=== PATIENT | female | born 1955 | race Caucasian/White ===

== ENCOUNTER → 2017-05-04 | Outpatient (CLI) | payer BC ==
--- NOTE | 2017-05-04 15:05 | PCVCIMAG ---
EXAM: BILATERAL CAROTID DUPLEX INDICATION: Carotid bruit FINDINGS: Doppler Measurements (centimeters per second): RIGHT: Peak CCA-78, Peak ECA-93, Diastolic ICA-31, Peak ICA-104, ICA/CCA Ratio-1.3. LEFT: Peak CCA-55, Peak ECA-63, Diastolic ICA-46, Peak ICA-119, ICA/CCA Ratio-2.2. RIGHT CAROTID: The carotid bulb has mild plaque. The proximal internal carotid artery shows <40% stenosis. The common carotid artery shows no significant stenosis. The external carotid artery shows no significant stenosis. LEFT CAROTID: The carotid bulb has mild plaque. The proximal internal carotid artery shows 40-50% stenosis. The common carotid artery shows no significant stenosis. The external carotid artery shows no significant stenosis. Antegrade flow in both vertebral arteries. IMPRESSION: <40% stenosis of the right internal carotid artery with mild plaque. 40-50% stenosis of the left internal carotid artery with mild plaque. LOC:[place] [id number]
--- NOTE | 2017-05-04 15:09 | PCVCIMAG ---
EXAM: ULTRASOUND OF THE THYROID INDICATION: Thyroid nodules FINDINGS: The right thyroid lobe measures 5.5 x 2.8 x 2.2 cm. The left thyroid lobe measures 6.0 x 2.0 x 2.2 cm. Multiple less than 1 cm hypoechoic nodules throughout both thyroid lobes. The largest on the right measures 0.6 x 0.8 x 0.9 cm in the mid to lower pole. The largest on the left is 0.6 x 0.8 x 0.9 cm in the mid to lower pole. IMPRESSION: Multiple small nodules throughout both thyroid lobes with mild thyroid enlargement consistent with multinodular thyroid goiter. LOC:[id number]
== END | disposition home or self-care (01) ==
LOC: PCVCIMAG 12:07
PROVIDERS: ATTEND Internal Medicine Cardiovascular Disease
DX: I65.23 Occlusion and stenosis of bilateral carotid arteries (principal); R09.89 Other specified symptoms and signs involving the circulatory and respiratory systems; I10 Essential (primary) hypertension; E78.1 Pure hyperglyceridemia; I45.10 Unspecified right bundle-branch block; E04.1 Nontoxic single thyroid nodule; E04.9 Nontoxic goiter, unspecified; E78.00 Pure hypercholesterolemia, unspecified; J44.9 Chronic obstructive pulmonary disease, unspecified; F17.200 Nicotine dependence, unspecified, uncomplicated; Z82.49 Family history of ischemic heart disease and other diseases of the circulatory system; Z79.82 Long term (current) use of aspirin; Z79.899 Other long term (current) drug therapy; Z88.0 Allergy status to penicillin
CPT/HCPCS: 76536; 80061; 93005; 93880; G0463

== ENCOUNTER → 2017-11-28 | Outpatient (CLI) | payer BC | END | disposition home or self-care (01) | LOC: PCVCIMAG 10:01 | DX: I15.0 Renovascular hypertension (principal) | CPT/HCPCS: 76770; 93975 ==

== ENCOUNTER → 2018-04-24 | Outpatient (CLI) | payer BC | END | disposition home or self-care (01) | LOC: PCVCIMAG 14:22 | DX: I65.23 Occlusion and stenosis of bilateral carotid arteries (principal); I10 Essential (primary) hypertension; E78.5 Hyperlipidemia, unspecified; E04.2 Nontoxic multinodular goiter; I77.9 Disorder of arteries and arterioles, unspecified; F17.210 Nicotine dependence, cigarettes, uncomplicated; Z79.82 Long term (current) use of aspirin; Z79.899 Other long term (current) drug therapy; Z88.0 Allergy status to penicillin; Z82.49 Family history of ischemic heart disease and other diseases of the circulatory system | CPT/HCPCS: 76536; 80061; 93005; 93880 ==